=== PATIENT | male | born 1985 | race Caucasian/White ===

== ENCOUNTER 2017-01-11 16:26 | Emergency (ER) | payer OTHER ==
[2017-01-11 16:32] VITALS: RESP 20
--- NOTE | 2017-01-11 17:02 | ED ---
General Adult HPI - General Chief complaint: ENT Stated complaint: Alcohol-Nose Bleeding Time Seen by Provider: 01/11/17 16:34 Source: patient, family Mode of arrival: wheelchair Limitations: no limitations - History of Present Illness Initial comments: This is a 31-year-old male who presents emergency department for facial injury. The patient reportedly had multiple falls at home. He is been drinking today and states he just tripped and fell. Per the friend at bedside he had quite a bit of bleeding from his nose is why she brought him in. She thinks that is no is also looks crooked. The patient denies any headache. No loss of consciousness. No nausea or vomiting. No other injuries. - Related Data Home Medications Medication Instructions Recorded Confirmed No Known Home Medications [No 01/11/17 01/11/17 Known Home Medications] Allergies Allergy/AdvReac Type Severity Reaction Status Date / Time No Known Allergies Allergy Verified 01/11/17 16:32 Review of Systems ROS Statement: Those systems with pertinent positive or pertinent negative responses have been documented in the HPI. ROS Other: All systems not noted in ROS Statement are negative. Past Medical History Past Medical History: No Reported History History of Any Multi-Drug Resistant Organisms: None Reported Past Surgical History: No Surgical Hx Reported Past Psychological History: No Psychological Hx Reported Smoking Status: Current every day smoker Past Alcohol Use History: Occasional Past Drug Use History: None Reported General Exam - General Exam Comments Initial Comments: Constitutional: Awake alert Appears comfortable Head: No cephalic, there are multiple abrasions to the face including the right lateral orbit and under the right eye there is some ecchymosis Eyes: no conjunctival injection No scleral icterus EOMI Neck: No JVD Supple, no midline tenderness, no pain with passive or active range of motion Heart: Regular rate rhythm normal S1-S2 no murmurs Lungs: Clear to auscultation bilaterally No wheezing No rales Abdomen: Soft nondistended nontender Extremities: Non edematous DP pulses intact Radial pulses intact Neuro: A&Ox3 No focal neurologic deficits Psych: Appropriate mood and affect, intoxicated Limitations: no limitations Course Vital Signs 01/11/17 16:28 Temperature 98.6 F Pulse Rate 87 Respiratory 20 Rate Blood Pressure 160/97 O2 Sat by Pulse 98 Oximetry Medical Decision Making - Medical Decision Making The patient is currently comfortable. CT scans were reviewed and unremarkable for any acute injuries. The patient is going to go home with his girlfriend who is going to drive him. He was encouraged to not drink. She is going to keep an eye on him. Given no scleral icterus is nose bleed recurs. Can return if he has worsening or changing symptoms. All questions were answered. Disposition Clinical Impression: Epistaxis, Head trauma Disposition: HOME SELF-CARE Condition: Stable Instructions: Nosebleed (ED) Referrals: None,Stated [Primary Care Provider] - 1-2 days
--- NOTE | 2017-01-11 17:27 | CT ---
EXAMINATION TYPE: CT facial bones wo con DATE OF EXAM: 01/11/2017 COMPARISON: NONE HISTORY: Patient complains of headache, nausea, dizziness, and sudden onset nose bleed today. CT DLP: 391 mGycm Automated exposure control for dose reduction was used. TECHNIQUE: CT scan of the sinuses is performed without contrast, axial images are obtained, coronal r eformatted images are also reviewed. FINDINGS: There is mucosal thickening at the floor of the right maxillary sinus. There is bilateral p atency of the ostiomeatal complex. Orbital margins are intact. There is no sign of a blowout fracture . There is no sign of retro-orbital mass. Nasal bone appears intact. Zygomatic arches appear normal. Maxilla appears intact. IMPRESSION: Right maxillary sinusitis.
--- NOTE | 2017-01-11 17:28 | CT ---
EXAMINATION TYPE: CT brain wo con DATE OF EXAM: 01/11/2017 COMPARISON: NONE HISTORY: Patient complains of headache, nausea, dizziness, and sudden onset nose bleed today. CT DLP: 1013 mGycm. Automated Exposure Control for Dose Reduction was Utilized. TECHNIQUE: CT scan of the head is performed without contrast. FINDINGS: Ventricles and sulci appear normal. There is no mass effect nor midline shift. There is no sign of intracranial hemorrhage. The calvarium is intact. IMPRESSION: Negative CT scan of the brain..
[2017-01-11 17:39] VITALS: BP 137/84; PULSE 90; TEMP 98.2
== END 2017-01-11 17:39 | disposition home or self-care (01) ==
LOC: EC 16:26
DX: S05.11XA Contusion of eyeball and orbital tissues, right eye, initial encounter (principal); R04.0 Epistaxis; F17.200 Nicotine dependence, unspecified, uncomplicated; W01.0XXA Fall on same level from slipping, tripping and stumbling without subsequent striking against object, initial encounter
CPT/HCPCS: 70450; 70486; 99283

== ENCOUNTER 2019-05-14 09:43 | Emergency (ER) | payer OTHER ==
[2019-05-14 09:52] VITALS: BP 156/95; PULSE 99; RESP 16; TEMP 98.4
--- NOTE | 2019-05-14 10:29 | ED ---
General Adult HPI - General Chief complaint: Alcohol Stated complaint: Alcohol detox Time Seen by Provider: 05/14/19 09:50 Source: patient, RN notes reviewed, old records reviewed Mode of arrival: ambulatory Limitations: no limitations - History of Present Illness Initial comments: This is a 33-year-old male who comes into the emergency department with a past medical history significant for alcoholism. Patient states he was at rehab and he left AGAINST MEDICAL ADVICE went home but here and drank them. Patient states he was drinking this morning. Patient came in because he was afraid that he had Ativan on Wednesday and the fact that he had alcohol today that he may have done some harm. Patient has no complaints other than he wants to make sure the Ativan is not can adversely affect and was drinking alcohol today. Again the last dose of Ativan was on Wednesday. Patient denies any headache patient denies numbness weakness. Patient denies chest pain difficulty breathing shortest breath per patient denies any fever chills or cough per patient denies abdominal pain patient denies nausea vomiting diarrhea. Patient did come with his aunt who is his auto transport driver. - Related Data Home Medications Medication Instructions Recorded Confirmed No Known Home Medications 01/11/17 01/11/17 Allergies Allergy/AdvReac Type Severity Reaction Status Date / Time No Known Allergies Allergy Verified 05/14/19 09:51 Review of Systems ROS Statement: Those systems with pertinent positive or pertinent negative responses have been documented in the HPI. ROS Other: All systems not noted in ROS Statement are negative. Past Medical History Past Medical History: No Reported History History of Any Multi-Drug Resistant Organisms: None Reported Past Surgical History: No Surgical Hx Reported Past Psychological History: No Psychological Hx Reported Smoking Status: Current every day smoker Past Alcohol Use History: Occasional Past Drug Use History: None Reported General Exam - General Exam Comments Initial Comments: GENERAL: Patient is well-developed and well-nourished. Patient is nontoxic and well- hydrated and is in no acute distress but is intoxicated. ENT: Neck is soft and supple. No significant lymphadenopathy is noted. Oropharynx is clear. Moist mucous membranes. Neck has full range of motion without eliciting any pain. EYES: The sclera were anicteric and conjunctiva were pink and moist. Extraocular movements were intact and pupils were equal round and reactive to light. Eyelids were unremarkable. PULMONARY: Unlabored respirations. Good breath sounds bilaterally. No audible rales rhonchi or wheezing was noted. CARDIOVASCULAR: There is a regular rate and rhythm without any murmurs gallops or rubs. ABDOMEN: Soft and nontender with normal bowel sounds. No palpable organomegaly was noted. There is no palpable pulsatile mass. SKIN: Skin is clear with no lesions or rashes and otherwise unremarkable. NEUROLOGIC: Patient is alert and oriented x3. Cranial nerves II through XII are grossly intact. Motor and sensory are also intact. Normal speech, volume and content. Symmetrical smile. Patient was able to get up with his socks and shoes while standing without problem. MUSCULOSKELETAL: Normal extremities with adequate strength and full range of motion. No lower extremity swelling or edema. No calf tenderness. LYMPHATICS: No significant lymphadenopathy is noted PSYCHIATRIC: Patient is intoxicated. Limitations: no limitations Course Vital Signs 05/14/19 09:50 Temperature 98.4 F Pulse Rate 99 Respiratory 16 Rate Blood Pressure 156/95 O2 Sat by Pulse 98 Oximetry Disposition Clinical Impression: Alcoholic intoxication Disposition: HOME SELF-CARE Condition: Good Instructions (If sedation given, give patient instructions): Alcohol Intoxication (ED) Is patient prescribed a controlled substance at d/c from ED?: No Referrals: None,Stated [Primary Care Provider] - 1-2 days Time of Disposition: 10:29
== END 2019-05-14 10:39 | disposition home or self-care (01) ==
LOC: EC 09:43
DX: F10.129 Alcohol abuse with intoxication, unspecified (principal); F17.200 Nicotine dependence, unspecified, uncomplicated
CPT/HCPCS: 99284

== ENCOUNTER 2020-07-26 19:19 | Emergency (ER) | payer OTHER ==
[2020-07-26 19:26] VITALS: PULSE 92; TEMP 98.3
[2020-07-26] MEDS ORDERED: LORazepam 2 MG/ML INJ IV STA (19:32)
--- NOTE | 2020-07-26 19:34 | ED ---
General Adult HPI - General Chief complaint: Shortness of Breath Stated complaint: SOB Time Seen by Provider: 07/26/20 19:24 Source: patient, EMS Mode of arrival: EMS Limitations: no limitations - History of Present Illness Initial comments: Dictation was produced using [employer] dictation software. please excuse any grammatical, word or spelling errors. This patient was cared for during a federal and state declared state of emergency secondary to Covid 19 Chief Complaint: 34-year-old male presents with pleuritic back pain History of Present Illness: 34-year-old male he was recently admitted at [facility] detox facility for methamphetamine and alcohol abuse. Patient states that today he is having back pain whenever he takes a deep breath. Patient states that whenever he takes a deep breath he feels a sharp stabbing pain to his back. Patient states when he take shallow breaths he does not feel symptoms. Denies any numbness and paresthesias to the arms or legs. He was discharged from [facility] with the treatment regimen. Patient denies any nausea vomiting or abdominal pain. Patient reports the last time he took amphetamines was approximately 1 week ago. Patient finishes Ativan protocol this morning. The ROS documented in this emergency department record has been reviewed and confirmed by me. Those systems with pertinent positive or negative responses have been documented in the HPI. All other systems are other negative and/or noncontributory. PHYSICAL EXAM: General Impression: Alert and oriented x3, not in acute distress HEENT: Normocephalic atraumatic, extra-ocular movements intact, dilated pupils, dry mucous membranes Cardiovascular: Heart regular rate and rhythm Chest: Able to complete full sentences, no retractions, no tachypnea Abdomen: abdomen soft, non-tender, non-distended, no organomegaly Musculoskeletal: Pulses present and equal in all extremities, no peripheral edema Motor: no focal deficits noted Neurological: CN II-XII grossly intact, no focal motor or sensory deficits noted Skin: Intact with no visualized rashes Psych: Normal affect and mood ED course: 34-year-old male presents to the emergency department for pleuritic back pain. Vital signs upon arrival are within acceptable limits. Patient has dilated pupils. Patient given 2 mg of IV Ativan. Patient likely having benzodiazepine withdrawal. Laboratory evaluation obtained showing no acute processes. CBC, metabolic panel, troponin is negative. She reevaluated after Ativan administration with significant improvement of symptoms. Patient was experiencing this drug withdrawal. Patient will be discharged. EKG interpretation: Ventricular rate 93, sinus rhythm,. Interval 102, QRS 90, QTC 422. No RI prolongation, no QTC prolongation, no ST or T-wave changes noted. Overall, this EKG is unremarkable - Related Data Home Medications Medication Instructions Recorded Confirmed Acetaminophen [Tylenol 8 Hour] 650 mg PO Q4H PRN 07/26/20 07/26/20 Chlorpheniramine Maleate 4 mg PO Q4H PRN 07/26/20 07/26/20 [Chlor-Trimeton] Clindamycin HCl 300 mg PO QID 07/26/20 07/26/20 Ibuprofen [Motrin] 600 mg PO DIRECTED PRN 07/26/20 07/26/20 LORazepam [Ativan] See Taper PO DIRECTED 07/26/20 07/26/20 Mirtazapine [Remeron] 15 - 20 mg PO HS PRN 07/26/20 07/26/20 Naproxen 500 mg PO BID@0615,1630 PRN 07/26/20 07/26/20 Tigan 100mg/Ml 200 mg IM Q6H PRN 07/26/20 07/26/20 Trimethobenzamide HCl [Tigan] 300 mg PO Q6H PRN 07/26/20 07/26/20 ondansetron HCL [Zofran] 8 mg PO Q6H PRN 07/26/20 07/26/20 Allergies Allergy/AdvReac Type Severity Reaction Status Date / Time No Known Allergies Allergy Verified 07/26/20 19:26 Review of Systems ROS Statement: Those systems with pertinent positive or pertinent negative responses have been documented in the HPI. ROS Other: All systems not noted in ROS Statement are negative. Past Medical History Past Medical History: No Reported History History of Any Multi-Drug Resistant Organisms: None Reported Past Surgical History: No Surgical Hx Reported Past Psychological History: No Psychological Hx Reported Smoking Status: Current every day smoker Past Alcohol Use History: Abuse Past Drug Use History: Cocaine, Heroin, Methamphetamine General Exam Limitations: no limitations Course Vital Signs 07/26/20 07/26/20 07/26/20 19:20 19:30 20:03 Temperature 98.3 F Pulse Rate 92 92 Respiratory 20 20 18 Rate Blood Pressure 133/94 135/86 O2 Sat by Pulse 97 96 Oximetry Medical Decision Making - Lab Data Result diagrams: 07/26/20 19:32 07/26/20 19:32 Lab Results 07/26/20 07/26/20 07/26/20 Range/Units 19:32 19:32 19:32 WBC 9.3 (3.8-10.6) k/uL RBC 4.73 (4.30-5.90) m/uL Hgb 15.1 (13.0-17.5) gm/dL Hct 42.8 (39.0-53.0) % MCV 90.4 (80.0-100.0) fL MCH 31.9 (25.0-35.0) pg MCHC 35.2 (31.0-37.0) g/dL RDW 12.0 (11.5-15.5) % Plt Count 295 (150-450) k/uL MPV 7.2 Neutrophils % 61 % Lymphocytes % 26 % Monocytes % 7 % Eosinophils % 4 % Basophils % 2 % Neutrophils # 5.7 (1.3-7.7) k/uL Lymphocytes # 2.4 (1.0-4.8) k/uL Monocytes # 0.6 (0-1.0) k/uL Eosinophils # 0.3 (0-0.7) k/uL Basophils # 0.2 (0-0.2) k/uL Sodium 138 (137-145) mmol/L Potassium 4.4 (3.5-5.1) mmol/L Chloride 103 (98-107) mmol/L Carbon Dioxide 29 (22-30) mmol/L Anion Gap 6 mmol/L BUN 15 (9-20) mg/dL Creatinine 0.77 (0.66-1.25) mg/dL Est GFR (CKD-EPI)AfAm >90 (>60 ml/min/1.73 sqM) Est GFR (CKD-EPI)NonAf >90 (>60 ml/min/1.73 sqM) Glucose 103 H (74-99) mg/dL Calcium 9.7 (8.4-10.2) mg/dL Troponin I <0.012 (0.000-0.034) ng/mL Disposition Clinical Impression: Chest pain Disposition: HOME SELF-CARE Condition: Good Instructions (If sedation given, give patient instructions): Chest Pain (ED) Is patient prescribed a controlled substance at d/c from ED?: No Referrals: Noah King MD [Primary Care Provider] - 1-2 days Time of Disposition: 20:08
[2020-07-26 19:38] LABS: Basophils # (A) 0.2 k/uL (0-0.2); Basophils % (A) 2 %; Eosinophils # (A) 0.3 k/uL (0-0.7); Eosinophils % (A) 4 %; HCT 42.8 % (39.0-53.0); HGB 15.1 gm/dL (13.0-17.5); Lymphocytes # (A) 2.4 k/uL (1.0-4.8); Lymphocytes % (A) 26 %; MCH 31.9 pg (25.0-35.0); MCHC 35.2 g/dL (31.0-37.0); MCV 90.4 fL (80.0-100.0); Mean Platelet Volume 7.2; Monocytes # (A) 0.6 k/uL (0-1.0); Monocytes % (A) 7 %; Neutrophils # (A) 5.7 k/uL (1.3-7.7); Neutrophils % (A) 61 %; Platelet Count 295 k/uL (150-450); RBC 4.73 m/uL (4.30-5.90); WBC 9.3 k/uL (3.8-10.6)
--- NOTE | 2020-07-26 19:48 | XR ---
EXAMINATION TYPE: XR chest 1V portable DATE OF EXAM: 07/26/2020 COMPARISON: NONE HISTORY: Right sided upper back pain. TECHNIQUE: Single frontal view of the chest is obtained. FINDINGS: There is no focal air space opacity, pleural effusion, or pneumothorax seen. The cardiac silhouette size is within normal limits. The osseous structures are intact. IMPRESSION: No acute process.
[2020-07-26 19:50] LABS: African American GFR (CKD) >90 (>60 ml/min/1.73 sqM); Anion Gap 6 mmol/L; Blood Urea Nitrogen 15 mg/dL (9-20); Calcium 9.7 mg/dL (8.4-10.2); Carbon Dioxide 29 mmol/L (22-30); Chloride 103 mmol/L (98-107); Glucose 103 mg/dL (74-99); Non-African American GFR(CKD) >90 (>60 ml/min/1.73 sqM); Potassium 4.4 mmol/L (3.5-5.1); Sodium 138 mmol/L (137-145)
[2020-07-26 20:03] VITALS: BP 135/86; RESP 18
== END 2020-07-26 20:24 | disposition home or self-care (01) ==
LOC: SUPCPDRO 19:19 → EC 19:19
DX: R07.9 Chest pain, unspecified (principal); F17.200 Nicotine dependence, unspecified, uncomplicated
CPT/HCPCS: 36415; 93005; 80048; 84484; 85025; 71045; 99285; 96374; J2060